=== PATIENT | male | born 1950 | race Two or more races ===

== ENCOUNTER → 2017-02-23 | Outpatient (CLI) | payer OTHER, MEDICAID ==
[~2017-02-23] MED LIST: CAR3125T PO; ENA2.5T PO; FURO20TA3 PO; PANT40TA2 PO; PRAS10TA PO; SPIR25TA89 PO; TAM04C PO; WARF4TAB31 PO
[2017-02-23 07:44] LABS: Albumin 4.3 g/dL (3.4-5.0); BUN/Creatinine Ratio 21.3; Bilirubin, Total 0.8 mg/dL (0.2-1.0); Calcium 9.4 mg/dL (8.5-10.1); Total Protein 7.9 g/dL (6.4-8.2)
[2017-02-23 07:46] LABS: Basophils # (auto) 0 uL; Basophils % (auto) 0.5 % (0.0-2.0); Eosinophils # (auto) 0.1 uL; Eosinophils % (auto) 2.1 % (0.0-7.0); Hemoglobin 16.5 g/dL (13.5-17.5); Lymphocytes # (auto) 1.5 uL; Lymphocytes % (auto) 30.9 % (10.0-50.0); Mean Corpuscular Hemoglobin 30.5 pg (28.0-32.0); Mean Corpuscular Hgb Conc. 33.7 g/dL (32.0-36.0); Mean Corpuscular Volume 90.6 fL (80.0-100.0); Mean Platelet Volume 10.1 fL (7.4-10.4); Monocytes # (auto) 0.4 uL; Monocytes % (auto) 9.1 % (0.0-12.0); Neutrophils # (auto) 2.7 uL; Neutrophils % (auto) 57.4 % (37.0-80.0); Platelet Count (auto) 187 10^3/uL (140-450); Red Cell Distribution Width 14.1 % (11.6-16.0); White Blood Cell 4.7 10^3/uL (4.4-10.8)
[2017-02-23 08:05] LABS: Urine Bilirubin Negative (Negative); Urine Blood Negative /uL (Negative); Urine Color Yellow (Yellow); Urine Glucose Normal (Normal); Urine Ketone Negative (Negative); Urine Mucus FEW (None Seen); Urine Nitrite Negative (Negative); Urine RBC <1 /hpf (0 - 3); Urine Squamous Epithelial Cell FEW /hpf (<5); Urine Urobilinogen Normal (Negative)
== END | disposition home or self-care (01) ==
LOC: LAB 06:45
PROVIDERS: ATTEND Internal Medicine
DX: Z00.00 Encounter for general adult medical examination without abnormal findings (principal); E78.2 Mixed hyperlipidemia; E11.9 Type 2 diabetes mellitus without complications; I10 Essential (primary) hypertension
CPT/HCPCS: 36415; 80053; 80061; 81001; 83036; 84443; 85025

== ENCOUNTER → 2018-02-12 | Outpatient (CLI) | payer OTHER, MEDICAID ==
[2018-02-12 09:21] LABS: Basophils # (auto) 0 uL; Basophils % (auto) 0.9 % (0.0-2.0); Eosinophils # (auto) 0.1 uL; Eosinophils % (auto) 1.1 % (0.0-7.0); Hematocrit 46.4 % (41.0-53.0); Hemoglobin 15.5 g/dL (13.5-17.5); Lymphocytes # (auto) 1.3 uL; Lymphocytes % (auto) 28.5 % (10.0-50.0); Mean Corpuscular Hemoglobin 30.9 pg (28.0-32.0); Mean Corpuscular Hgb Conc. 33.5 g/dL (32.0-36.0); Mean Corpuscular Volume 92.1 fL (80.0-100.0); Monocytes # (auto) 0.4 uL; Neutrophils # (auto) 2.9 uL; Neutrophils % (auto) 61.5 % (37.0-80.0); Nucleated Red Blood Cells % 0.1 %; Platelet Count (auto) 182 10^3/uL (140-450); Red Blood Cells 5.04 10^6/uL (4.5-5.90); Red Cell Distribution Width 14.2 % (11.8-14.3); White Blood Cell 4.6 10^3/uL (4.4-10.8)
[2018-02-12 10:06] LABS: Albumin 3.9 g/dL (3.4-5.0); BUN/Creatinine Ratio 29.9; Bilirubin, Total 0.8 mg/dL (0.2-1.0); Calcium 8.9 mg/dL (8.5-10.1); Potassium 3.9 mmol/L (3.5-5.1); Total Protein 7.3 g/dL (6.4-8.2)
== END | disposition home or self-care (01) ==
LOC: LAB 08:56
PROVIDERS: ATTEND Physician Assistant
DX: Z12.5 Encounter for screening for malignant neoplasm of prostate (principal); D64.9 Anemia, unspecified; I50.20 Unspecified systolic (congestive) heart failure; R94.5 Abnormal results of liver function studies; E78.5 Hyperlipidemia, unspecified; Z98.61 Coronary angioplasty status
CPT/HCPCS: 36415; 80053; 80061; 84153; 85025; 85379

== ENCOUNTER → 2018-04-21 | Outpatient (CLI) | payer OTHER ==
[~2018-04-21] VITALS: Ht 180.3 cm; Wt 108.9 kg
[~2018-04-21] MED LIST changes: +ADENOSINE 91 MG in GIVE UN-DILUTED 0 ML IV ONE
[2018-04-21 13:11] VITALS: BP 151/88
== END | disposition home or self-care (01) ==
LOC: XY 09:16
PROVIDERS: ATTEND Internal Medicine Cardiovascular Disease
DX: I20.8 Other forms of angina pectoris (principal); I25.5 Ischemic cardiomyopathy; E78.5 Hyperlipidemia, unspecified; E11.9 Type 2 diabetes mellitus without complications; I10 Essential (primary) hypertension
CPT/HCPCS: 78452; 93017; A9500; J0153

== ENCOUNTER → 2018-11-10 | Outpatient (CLI) | payer OTHER ==
[~2018-11-10] MED LIST changes: -ADENOSINE 91 MG in GIVE UN-DILUTED 0 ML IV ONE; +SPIR25TA8 PO; -SPIR25TA89 PO
[2018-11-10 10:34] LABS: Basophils # (auto) 0 uL; Basophils % (auto) 0.9 % (0.0-2.0); Eosinophils # (auto) 0.1 uL; Eosinophils % (auto) 2.1 % (0.0-7.0); Hematocrit 49.5 % (41.0-53.0); Hemoglobin 16.6 g/dL (13.5-17.5); Lymphocytes # (auto) 1.2 uL; Lymphocytes % (auto) 27.4 % (10.0-50.0); Mean Corpuscular Hemoglobin 31.1 pg (28.0-32.0); Mean Corpuscular Hgb Conc. 33.6 g/dL (32.0-36.0); Mean Corpuscular Volume 92.5 fL (80.0-100.0); Monocytes # (auto) 0.3 uL; Monocytes % (auto) 6.9 % (0.0-12.0); Neutrophils # (auto) 2.8 uL; Neutrophils % (auto) 62.7 % (37.0-80.0); Nucleated Red Blood Cells % 0.3 %; Platelet Count (auto) 181 10^3/uL (140-450); Red Blood Cells 5.35 10^6/uL (4.5-5.90); Red Cell Distribution Width 13.9 % (11.8-14.3); White Blood Cell 4.5 10^3/uL (4.4-10.8)
[2018-11-10 10:37] LABS: Urine Blood Negative /uL (Negative); Urine Specific Gravity 1.025 (1.001-1.035)
[2018-11-10 12:33] LABS: Potassium 3.7 mmol/L (3.5-5.1)
[2018-11-10 12:45] LABS: BUN/Creatinine Ratio 32.5; Calcium 9.3 mg/dL (8.5-10.1); Total Protein 7.7 g/dL (6.4-8.2)
== END | disposition home or self-care (01) ==
LOC: LAB 08:38
DX: I10 Essential (primary) hypertension (principal); Z86.79 Personal history of other diseases of the circulatory system
CPT/HCPCS: 36415; 80053; 80061; 81003; 85025

== ENCOUNTER 2022-05-27 09:14 | Emergency (ER) | payer OTHER ==
[~2022-05-27] VITALS: Ht 177.8 cm; Wt 100.7 kg
[~2022-05-27 09:14] MED LIST changes: -ENA2.5T PO; +ENAL2.5T11 PO; +WARF4TAB2 PO; -WARF4TAB31 PO
[2022-05-27 09:53] LABS: Urine Bacteria NONE SEEN /hpf (None Seen); Urine Blood Negative /uL (Negative); Urine Mucus FEW (None Seen); Urine Specific Gravity 1.042 (1.001-1.035); Urine WBC 1 /hpf (0 - 3)
[2022-05-27] MEDS ORDERED: SODIUM CHLORIDE 0.9% 1,000 ML IV ONE ×2 (10:45)
[2022-05-27 10:58] LABS: Basophils # (auto) 0 10 ^3/uL (0-0.2); Basophils % (auto) 0.2 % (0.0-2.0); Eosinophils # (auto) 0 10 ^3/uL (0-0.8); Eosinophils % (auto) 0.3 % (0.0-7.0); Hematocrit 44.4 % (41.0-53.0); Hemoglobin 14.4 g/dL (13.5-17.5); Lymphocytes # (auto) 0.5 10 ^3/uL (0.4-5.4); Lymphocytes % (auto) 3.4 % (10.0-50.0); Mean Corpuscular Hemoglobin 29.7 pg (28.0-32.0); Mean Corpuscular Hgb Conc. 32.5 g/dL (32.0-36.0); Mean Corpuscular Volume 91.6 fL (80.0-100.0); Monocytes # (auto) 1.1 10 ^3/uL (0-1.3); Neutrophils # (auto) 13.5 10 ^3/uL (1.6-8.6); Neutrophils % (auto) 89.1 % (37.0-80.0); Red Blood Cells 4.85 10^6/uL (4.5-5.90); Red Cell Distribution Width 14.9 % (11.8-14.3); White Blood Cell 15.1 10^3/uL (4.4-10.8)
[2022-05-27 11:15] LABS: Albumin 3.6 g/dL (3.4-5.0); BUN/Creatinine Ratio 25.3; Calcium 9.3 mg/dL (8.5-10.1); Potassium 4.4 mmol/L (3.5-5.1)
[2022-05-27 11:27] LABS: Bilirubin, Total 2.2 mg/dL (0.2-1.0); Total Protein 6.6 g/dL (6.4-8.2)
[2022-05-27] MEDS ORDERED: KETOROLAC TROMETH 30 MG/ML 1ML VIAL IV ONE (11:45)
[2022-05-27 13:00] VITALS: BP 102/60
[2022-05-27] MEDS ORDERED: IBU600T PO (15:18)
[2022-05-27] MEDS ORDERED: TAM04C PO (15:18)
[2022-05-28] MEDS ORDERED: ONDA-144 PO (09:46)
[2022-05-28] MEDS ORDERED: HYDR-4902 PO (09:46)
== END 2022-05-27 16:06 | disposition home or self-care (01) ==
LOC: ER 09:14
DX: N20.0 Calculus of kidney (principal); M54.50 Low back pain, unspecified; I10 Essential (primary) hypertension; Z86.73 Personal history of transient ischemic attack (TIA), and cerebral infarction without residual deficits; Z98.61 Coronary angioplasty status
CPT/HCPCS: 36415; 74176; 80053; 81001; 85025; 93005; 96361; 96374; 99285; J1885; J7030

== ENCOUNTER 2022-05-28 08:32 | Emergency (ER) | payer OTHER ==
[~2022-05-28] VITALS: Ht 180.3 cm; Wt 108.9 kg
[~2022-05-28 08:32] MED LIST changes: +IBU600T PO
[2022-05-28] MEDS ORDERED: PROMETHAZINE HCL 25 MG/ML 1ML IM ONE (09:45)
[2022-05-28] MEDS ORDERED: MEPERIDINE HCL (50 MG/ML) 1 ML VIAL IM ONE (09:45)
[2022-05-28] MEDS ORDERED: HYDR-4902 PO (09:46)
[2022-05-28] MEDS ORDERED: ONDA-144 PO (09:46)
[2022-05-28 10:13] VITALS: BP 137/70
== END 2022-05-28 10:33 | disposition home or self-care (01) ==
LOC: ER 08:32
DX: G89.4 Chronic pain syndrome (principal); I10 Essential (primary) hypertension; I25.10 Atherosclerotic heart disease of native coronary artery without angina pectoris; Z87.442 Personal history of urinary calculi; Z79.1 Long term (current) use of non-steroidal anti-inflammatories (NSAID); Z79.899 Other long term (current) drug therapy
CPT/HCPCS: 96372; 99284; J2175; J2550

== ENCOUNTER 2023-01-30 13:00 | Inpatient (IN) | payer OTHER ==
[~2023-01-30] VITALS: Ht 185.4 cm; Wt 108.4 kg
[~2023-01-30 13:00] MED LIST changes: +HYDR-4902 PO; +ONDA-144 PO
[2023-01-30] MEDS ORDERED: FUROSEMIDE 40 MG/4 ML VIAL IV ONE (13:30)
[2023-01-30 14:05] LABS: Basophils # (auto) 0.1 10 ^3/uL (0-0.2); Basophils % (auto) 0.9 % (0.0-2.0); Eosinophils # (auto) 0.1 10 ^3/uL (0-0.8); Eosinophils % (auto) 0.8 % (0.0-7.0); Hematocrit 45.5 % (41.0-53.0); Hemoglobin 14.6 g/dL (13.5-17.5); Lymphocytes # (auto) 1.5 10 ^3/uL (0.4-5.4); Lymphocytes % (auto) 16.8 % (10.0-50.0); Mean Corpuscular Hemoglobin 29.7 pg (28.0-32.0); Mean Corpuscular Hgb Conc. 32.2 g/dL (32.0-36.0); Mean Corpuscular Volume 92.5 fL (80.0-100.0); Monocytes # (auto) 0.7 10 ^3/uL (0-1.3); Monocytes % (auto) 7.8 % (0.0-12.0); Neutrophils # (auto) 6.4 10 ^3/uL (1.6-8.6); Neutrophils % (auto) 73.7 % (37.0-80.0); Nucleated Red Blood Cells % 0.2 %; Red Blood Cells 4.92 10^6/uL (4.5-5.90); White Blood Cell 8.6 10^3/uL (4.4-10.8)
[2023-01-30 14:41] LABS: Albumin 3.2 g/dL (3.4-5.0); Calcium 8.9 mg/dL (8.5-10.1); Magnesium 2.6 mg/dL (1.6-2.6); Potassium 4.1 mmol/L (3.5-5.1)
[2023-01-30 14:46] LABS: BUN/Creatinine Ratio 28.3; Bilirubin, Total 1.4 mg/dL (0.2-1.0); Total Protein 6.8 g/dL (6.4-8.2)
[2023-01-30 16:26] LABS: Urine Bacteria NONE SEEN /hpf (None Seen); Urine Blood Negative /uL (Negative); Urine Hyaline Cast FEW /lpf (0 - 2); Urine Mucus FEW (None Seen); Urine Specific Gravity 1.006 (1.001-1.035); Urine WBC <1 /hpf (0 - 3)
[2023-01-30] MEDS ORDERED: MORPHINE SULFATE INJ 2 MG/ml SYRG IV PRN (16:45)
[2023-01-30] MEDS ORDERED: NITROGLYCERIN 0.4 MG SL TAB SL PRN (16:45)
[2023-01-30] MEDS ORDERED: HYDROcodone-ACET 5/325MG TAB PO PRN (16:45)
[2023-01-30] MEDS ORDERED: ONDANSETRON HCL 4 MG/2 ML VIAL IV PRN (16:45)
[2023-01-30] MEDS ORDERED: ACETAMINOPHEN 500 MG TAB PO PRN (16:45)
[2023-01-30] MEDS ORDERED: hydrALAZINE HCL 20 MG/ML VL IV PRN (16:45)
[2023-01-30 22:13] VITALS: BP 125/89
[2023-01-30] MEDS: METOPROLOL TARTRATE 25 MG TAB PO SCH (22:57)
[2023-01-31 05:00] VITALS: BP 118/72
[2023-01-31 07:26] LABS: Potassium 4.1 mmol/L (3.5-5.1)
[2023-01-31 07:33] LABS: BUN/Creatinine Ratio 37.6; Calcium 8.8 mg/dL (8.5-10.1)
[2023-01-31] MEDS: METOPROLOL TARTRATE 25 MG TAB PO SCH ×2 (08:49→22:03)
[2023-01-31 09:00] VITALS: BP 122/77
[2023-01-31] MEDS ORDERED: FUROSEMIDE 40 MG/4 ML VIAL IV SCH (10:00)
[2023-01-31 13:00] VITALS: BP 102/76
[2023-01-31 17:00] VITALS: BP 114/78
[2023-01-31] MEDS: FUROSEMIDE 40 MG/4 ML VIAL IV SCH (17:37)
[2023-01-31 22:00] VITALS: BP 94/67
[2023-01-31] MEDS ORDERED: CARV25TA55 PO (23:51)
[2023-01-31] MEDS ORDERED: CLOP75TA70 PO (23:51)
[2023-01-31] MEDS ORDERED: ATOR40TA52 PO (23:52)
[2023-02-01 05:00] VITALS: BP 119/82
[2023-02-01] MEDS: FUROSEMIDE 40 MG/4 ML VIAL IV SCH (05:35)
[2023-02-01 07:26] LABS: Calcium 8.8 mg/dL (8.5-10.1); Potassium 3.7 mmol/L (3.5-5.1)
[2023-02-01 07:28] LABS: BUN/Creatinine Ratio 42.6
[2023-02-01 09:00] VITALS: BP 103/60
[2023-02-01] MEDS: METOPROLOL TARTRATE 25 MG TAB PO SCH (09:43)
[2023-02-01] MEDS ORDERED: MET25T PO (12:00)
[2023-02-01] MEDS ORDERED: FURO1TAB33 PO (12:00)
[2023-02-01 12:44] VITALS: BP 114/62
[2023-02-01 13:00] VITALS: BP 108/72
== END 2023-02-01 15:05 | disposition home or self-care (01) | DRG 291 ==
LOC: ER 13:00 → TELE 16:40 → TELE-WESTW 21:47
PROVIDERS: ADMIT Nurse Practitioner Acute Care; ATTEND Nurse Practitioner Acute Care
DX: I11.0 Hypertensive heart disease with heart failure (principal); I50.43 Acute on chronic combined systolic (congestive) and diastolic (congestive) heart failure; J96.01 Acute respiratory failure with hypoxia; D84.9 Immunodeficiency, unspecified; E66.9 Obesity, unspecified; I25.10 Atherosclerotic heart disease of native coronary artery without angina pectoris; I44.7 Left bundle-branch block, unspecified; Z20.822 Contact with and (suspected) exposure to COVID-19; Z86.711 Personal history of pulmonary embolism; Z79.82 Long term (current) use of aspirin; Z79.899 Other long term (current) drug therapy; Z82.49 Family history of ischemic heart disease and other diseases of the circulatory system; Z87.442 Personal history of urinary calculi; Z98.61 Coronary angioplasty status; Z82.61 Family history of arthritis; Z68.31 Body mass index [BMI] 31.0-31.9, adult
CPT/HCPCS: 36415; 71045; 71046; 80048; 80053; 81001; 83735; 83880; 84484; 85025; 87426; 87804; 93005; 93306; 96374; G0378